=== PATIENT | female | born 1990 ===

== ENCOUNTER 2022-09-05 22:23 | Inpatient (IN) | payer BC ==
[2022-09-05] MEDS ORDERED: Sodium Chloride 0.9% 2.5 ML Syringe FLUSH PRN (23:06)
[2022-09-05] MEDS ORDERED: Tranexamic Acid 1,000 MG in Sodium Chloride 0.9% 100 ML IV PRN (23:06)
[2022-09-05] MEDS ORDERED: Water For Irrigation,Sterile 1,000 ML Container IRR PRN (23:06)
[2022-09-05] MEDS ORDERED: Lidocaine 1% 50 ML MDV INJECT PRN (23:06)
[2022-09-05] MEDS ORDERED: Methylergonovine 0.2 MG/1 ML Amp IM PRN (23:06)
[2022-09-05] MEDS ORDERED: Ondansetron 4 MG/2 ML SDV IVPUSH PRN (23:06)
[2022-09-05] MEDS ORDERED: Sodium Chloride 0.9% 20 ML SDV IV PRN (23:06)
[2022-09-05] MEDS ORDERED: Carboprost Tromethamine 250 MCG/1 ML Amp IM PRN (23:06)
[2022-09-05] MEDS ORDERED: Butorphanol 1 MG/ML SDV IVPUSH PRN (23:06)
[2022-09-05] MEDS ORDERED: Sodium Chloride 0.9% 10 ML Syringe FLUSH PRN (23:06)
[2022-09-05] MEDS ORDERED: Misoprostol 200 MCG Tab PO PRN (23:06)
[2022-09-05] MEDS ORDERED: Oxytocin/0.9 % Sodium Chloride 30 UNIT/500 ML BAG IV SCH (23:15)
[2022-09-05] MEDS: Lactated Ringers 1,000 ML IV SCH (23:45)
[2022-09-06] MEDS ORDERED: Ropivacaine/PF 400 MG/200 ML PCA ONE (00:33)
[2022-09-06] MEDS: Lactated Ringers 1,000 ML IV SCH (00:49)
[2022-09-06] MEDS ORDERED: ePHEDrine 50 MG/ML SDV IVPUSH PRN (00:58)
[2022-09-06] MEDS ORDERED: Phenylephrine HCl In 0.9% NaCl 1 MG/10 ML Vial IVPUSH PRN (00:58)
[2022-09-06] MEDS ORDERED: Ropivacaine HCl/PF 400 MG in Premix Bag 1 BAG EPIDUR SCH (01:00)
[2022-09-06] MEDS ORDERED: Docusate Sodium 100 MG Cap PO PRN (03:58)
[2022-09-06] MEDS ORDERED: Ibuprofen 400 MG Tab PO PRN (03:58)
[2022-09-06] MEDS ORDERED: Bisacodyl 10 MG Supp RECTAL PRN (03:58)
[2022-09-06] MEDS ORDERED: Acetaminophen 500 MG Tab PO PRN (03:58)
[2022-09-06] MEDS ORDERED: Lanolin 100% Cream 7 GM Tube TOP PRN (03:58)
[2022-09-06] MEDS ORDERED: Witch Hazel Medicated Pads 40/Jar TOP PRN (03:58)
[2022-09-06] MEDS ORDERED: oxyCODONE 5 MG Tab PO PRN (03:58)
[2022-09-06] MEDS ORDERED: Benzocaine/Menthol 20%-0.5% Spray 78 GM Cannister TOP PRN (03:58)
[2022-09-06] MEDS: Ibuprofen 800 MG Tab PO PRN ×2 (07:56→17:39)
[2022-09-06] MEDS: Acetaminophen 500 MG Tab PO PRN ×2 (13:37→22:10)
[2022-09-07] MEDS: Ibuprofen 800 MG Tab PO PRN (08:33)
== END 2022-09-07 12:38 | disposition home or self-care (01) | DRG 560 ==
LOC: MW.OBCHECK 22:23 → MW.OB 22:23 → MW.OBCHECK 23:05 → MW.OB 23:06 → OBSVTOIN 09-06 03:41 → MW.OB 09-06 07:49
PROVIDERS: ADMIT Obstetrics & Gynecology; ATTEND Obstetrics & Gynecology
PROC: 10E0XZZ Delivery of Products of Conception, External Approach (ICD-10-PCS; principal; 2022-09-06)
PROC: 0HBJXZZ Excision of Left Upper Leg Skin, External Approach (ICD-10-PCS; 2022-09-06)
PROC: 10907ZC Drainage of Amniotic Fluid, Therapeutic from Products of Conception, Via Natural or Artificial Opening (ICD-10-PCS; 2022-09-06)
PROC: 0HQ9XZZ Repair Perineum Skin, External Approach (ICD-10-PCS; 2022-09-06)
PROC: 3E0R3BZ Introduction of Anesthetic Agent into Spinal Canal, Percutaneous Approach (ICD-10-PCS; 2022-09-06)
PROC: 00HU33Z Insertion of Infusion Device into Spinal Canal, Percutaneous Approach (ICD-10-PCS; 2022-09-06)
DX: O48.0 Post-term pregnancy (principal); Z3A.41 41 weeks gestation of pregnancy; Z37.0 Single live birth; L91.8 Other hypertrophic disorders of the skin; O70.0 First degree perineal laceration during delivery; Z20.822 Contact with and (suspected) exposure to COVID-19
CPT/HCPCS: 36415; 51702; 59025; 59409; 85014; 85018; 85027; 86592; 86850; 86900; 86901; A9270-GY; J2405; J2590; J2795; J7120; U0002